=== PATIENT | female | born 1990 | race Hispanic/Latino ===

== ENCOUNTER 2017-07-01 11:35 | Inpatient (IN) | payer MEDICAID ==
[~2017-07-01] VITALS: Ht 160 cm; Wt 85.3 kg
[2017-07-01] MEDS ORDERED: LACTATED RINGERS 1000ML 1,000 ML IV PRN (12:05)
[2017-07-01] MEDS ORDERED: OXYTOCIN 10 USP UNITS/ML ONE ×2 (12:07→13:17)
[2017-07-01] MEDS: OXYTOCIN-LR 20 UNITS/1000 ML 1,000 ML IV SCH (12:15)
[2017-07-01 12:19] LABS: HEMATOCRIT 36.1 % (36-48); MEAN CORPUSCULAR HEMOGLOBIN 27.7 pg (27.0-33.0); MEAN CORPUSCULAR HGB CONC 33.2 g/dL (32.0-36.0); MEAN CORPUSCULAR VOLUME 83.6 fL (79-99); PLATELET COUNT (AUTO) 182 K/uL (130-400); RED BLOOD CELL COUNT(AUTO) 4.32 MIL/uL (4.00-5.50); RED CELL DISTRIBUTION WIDTH 15.2 % (11.0-15.5); WHITE BLOOD COUNT (AUTO) 12.3 K/uL (4.8-10.8)
[2017-07-01 12:19] LABS: APPEARANCE,URINE CLEAR (CLEAR); BILIRUBIN,URINE NEGATIVE (NEGATIVE); COLOR,URINE YELLOW (YELLOW); GLUCOSE, URINE (UA) NEGATIVE (NEGATIVE); KETONES,URINE NEGATIVE (NEGATIVE); LEUKOCYTE ESTERASE ,URINE SMALL (NEGATIVE); NITRATE,URINE NEGATIVE (NEGATIVE); OCCULT BLOOD,URINE LARGE (NEGATIVE); PROTEIN,URINE NEGATIVE (NEGATIVE); UROBILINOGEN,URINE 0.2 mg/dL (0.2-1.0)
[2017-07-01 12:33] LABS: BACTERIA,URINE Rare /HPF (None Seen); SQUAMOUS EPITHELIAL CELL,UR Few /LPF (0-2); WBC,URINE 0-1 /HPF (0-1)
[2017-07-01] MEDS ORDERED: LANOLIN 30GM OINTMENT TP PRN (13:00)
[2017-07-01] MEDS ORDERED: HYDROCODONE/ACETAMINOPHEN 5/325 MG TAB PO PRN (13:00)
[2017-07-01] MEDS ORDERED: DIPH,PERTUSS(ACELL),TET VAC/PF 0.5 ML VIAL IM PRN (13:00)
[2017-07-01] MEDS ORDERED: ACETAMINOPHEN 325 MG TAB PO PRN (13:00)
[2017-07-01] MEDS ORDERED: BENZOCAINE/LANOLIN/ALOE VERA 60 ML AEROSOL TP PRN (13:00)
[2017-07-01] MEDS ORDERED: WITCH HAZEL 1 PAD TP PRN (13:00)
[2017-07-01] MEDS ORDERED: MEASLES/MUMPS/RUBELLA VACCINE, LIVE 0.5 ML/VIAL SQ PRN (13:00)
[2017-07-01 16:00] VITALS: BP 118/72
[2017-07-01] MEDS: IBUPROFEN 600 MG TABLET PO PRN (18:11)
[2017-07-01 19:30] VITALS: BP 125/74
[2017-07-01] MEDS: DOCUSATE SODIUM 100 MG CAP PO SCH (20:58)
[2017-07-01 23:47] VITALS: BP 126/74
[2017-07-02 04:46] VITALS: BP 126/76
[2017-07-02] MEDS: IBUPROFEN 600 MG TABLET PO PRN ×2 (04:57→20:16)
[2017-07-02 05:08] LABS: HEMATOCRIT 31.1 % (36-48); MEAN CORPUSCULAR HEMOGLOBIN 28.6 pg (27.0-33.0); MEAN CORPUSCULAR HGB CONC 33.8 g/dL (32.0-36.0); MEAN CORPUSCULAR VOLUME 84.6 fL (79-99); PLATELET COUNT (AUTO) 171 K/uL (130-400); RED BLOOD CELL COUNT(AUTO) 3.67 MIL/uL (4.00-5.50); RED CELL DISTRIBUTION WIDTH 15.2 % (11.0-15.5); WHITE BLOOD COUNT (AUTO) 10.8 K/uL (4.8-10.8)
[2017-07-02 08:10] VITALS: BP 124/73
[2017-07-02] MEDS: DOCUSATE SODIUM 100 MG CAP PO SCH ×2 (08:53→20:15)
[2017-07-02] MEDS: OXYTOCIN-LR 20 UNITS/1000 ML 1,000 ML IV SCH (12:15)
[2017-07-02 12:49] VITALS: BP 123/85
[2017-07-02 15:14] VITALS: BP 123/76
[2017-07-02] MEDS: FLU VACC QS2017-18 36MOS UP/PF 60 MCG/0.5 ML ML IM SCH ×2 (16:12→19:50)
[2017-07-02 19:20] VITALS: BP 121/79
[2017-07-02 23:56] VITALS: BP 112/69
[2017-07-03 03:53] VITALS: BP 116/70
[2017-07-03] MEDS: IBUPROFEN 600 MG TABLET PO PRN (03:53)
[2017-07-03 07:31] VITALS: BP 128/72
[2017-07-03 08:18] LABS: HEPATITIS Bs ANTIGEN SCREEN P Negative (Negative)
[2017-07-03] MEDS: DOCUSATE SODIUM 100 MG CAP PO SCH (08:27)
[2017-07-03 11:13] VITALS: BP 126/70
== END 2017-07-03 13:10 | disposition home or self-care (01) | DRG 560 ==
LOC: EDH 11:35 → LDH 11:44 → OBSVTOIN 11:44 → WSH 17:30
PROVIDERS: ADMIT Obstetrics & Gynecology; ATTEND Obstetrics & Gynecology
PROC: 10E0XZZ Delivery of Products of Conception, External Approach (ICD-10-PCS; principal; 2017-07-01)
PROC: 3E0234Z Introduction of Serum, Toxoid and Vaccine into Muscle, Percutaneous Approach (ICD-10-PCS; 2017-07-02)
DX: O99.824 Streptococcus B carrier state complicating childbirth (principal); O69.81X0 Labor and delivery complicated by cord around neck, without compression, not applicable or unspecified; Z37.0 Single live birth; Z3A.38 38 weeks gestation of pregnancy; Z23 Encounter for immunization
CPT/HCPCS: 36415; 81001; 85027; 86592; 86850; 86900; 86901; 87340; 90715; A4606; J2590; J7120; Q2038